=== PATIENT | female | born 1960 | race Caucasian/White ===

== ENCOUNTER 2023-05-04 09:56 | Outpatient (CLI) | payer MEDICARE, SELFPAY ==
--- NOTE | 2023-05-04 11:13 | ECG_ITS ---
Measurements Intervals [place] Rate: 74 P: 53 MD: 154 QRS: 0 QRSD: 96 T: 17 QT: 384 QTc: 429 Interpretive Statements SINUS RHYTHM DELAYED PRECORDIAL R/S TRANSITION BORDERLINE T WAVE ABNORMALITY- ANT/INF LEADS BASELINE ARTIFACT- I, III, AVL BORDERLINE ECG NO PREVIOUS ECG AVAILABLE FOR COMPARISON Electronically Signed On 05-04-2023 13:09:28 CDT by Antony Kc D.O.
[2023-05-04 11:41] LABS: Basophils Absolute Auto 0.1 K/mm3 (0.0-0.1); Basophils Percent Auto 1.1 % (0.2-1.2); Eosinophils Absolute Auto 0.1 K/mm3 (0-0.3); Eosinophils Percent Auto 1.8 % (0-4.4); Hematocrit 46.1 % (37.0-47.0); Hemoglobin 15.1 g/dL (12.0-15.0); Immature Granulocyte Absolute 0.02 K/mm3 (0.00-0.031); Immature Granulocyte Percent A 0.4 % (0-0.5); Lymphocytes Absolute Auto 1.26 K/mm3 (0.9-3.2); Lymphocytes Percent Auto 27.6 % (18.3-44.2); Mean Corpuscular HGB Conc 32.8 g/dl (32-36); Mean Corpuscular Hemoglobin 31.7 pg (26-34); Mean Corpuscular Volume 96.8 fl (80-100); Mean Platelet Volume 9.5 fl (7.4-10.4); Monocytes Absolute Auto 0.6 K/mm3 (0.1-0.6); Monocytes Percent Auto 12.1 % (2.6-8.5); Neutrophils Absolute Auto 2.6 K/mm3 (1.3-6.7); Platelet Count Result 170 k/mm3 (150-375); Red Blood Count 4.76 M/mm3 (4.2-5.4); Red Cell Distribution Width 12.5 % (11.5-14.5); White Blood Count 4.6 K/mm3 (4.5-10.0)
[2023-05-04 11:52] LABS: INR 0.9
[2023-05-04 11:53] LABS: Alanine Aminotransferase 32 U/L (6-35); Albumin Level 4.5 g/dL (3.5-5.1); Alkaline Phosphatase 143 U/L (38-126); Anion Gap 6 mmol/L (8-16); Aspartate Amino Transferase 32 U/L (14-36); Bilirubin,Total 0.4 mg/dL (0.2-1.3); Blood Urea Nitrogen 15 mg/dL (7-17); Calcium 9.1 mg/dL (8.4-10.2); Carbon Dioxide 31 mmol/L (22-30); Chloride 102 mmol/L (98-107); Estimated Glomerular Filt Rate > 60; Glucose 92 mg/dL (65-110); Partial Thromboplastin Time 28.1 SECONDS (22.3-36.8); Sodium 139 mmol/L (137-145)
== END 2023-05-04 09:57 | disposition home or self-care (01) ==
LOC: ANHSURGERY 10:03
PROVIDERS: PCP Internal Medicine; Visit Provider Urology
DX: N81.2 Incomplete uterovaginal prolapse (principal); Z01.818 Encounter for other preprocedural examination; R94.31 Abnormal electrocardiogram [ECG] [EKG]
CPT/HCPCS: 36415; 80053; 85025; 85610; 85730; 86850; 86900; 86901; 93005

== ENCOUNTER 2023-05-14 01:08 | Day surgery (SDC) | payer MEDICARE, SELFPAY ==
[2023-05-04 10:16] VITALS: BP 148/83; PULSE 81; RESP 16; TEMP 37.1; O2SAT 98; BMI 24.6
--- NOTE | 2023-05-04 10:38 | PC.NURSE ---
Addendum entered by Minerva Ann RN 05/04/23 11:09: CORRECTION- HOLD ALL VITAMINS/SUPPLEMENTS 3 DAYS PRE-OP- LAST DOSE 05/10/23. PT RELAYS UNDERSTANDING. Original Note: Report to the Outpatient Waiting Room, entrance under the green pavilion located off [facility], at time __6:00AM on date ___05/14/23____. Planned Procedure Time: __7:30AM . Time changes happen often and if your time is changed the preop area will call you the afternoon before. - You and your visitor will be asked to self-screen and do not enter if you have any COVID symptoms. - A mask is optional within the hospital at this time. Patients may have clear liquids (water, carbonated beverages, clear teas, apple juice) until 3 hours prior to surgery with a maximum of 20 ounces. - No food from midnight until time of surgery Take the following medications with a SIP of water the morning of surgery: ___NONE DO NOT STOP ANY OF YOUR OTHER PRESCRIPTION MEDICATIONS PRIOR TO SURGERY ?EXCEPT THE FOLLOWING Medications to discontinue per physician ____NONE Date to take last dose Please no make-up, nail welsh, hairspray, perfume, deodorant, or body powder the day of surgery. No jewelry (including any body piercings) or valuables the day of surgery, leave them at home. Please take a shower or bath the night before, or the morning of, surgery with an antibacterial soap. Wear comfortable, loose fitting clothing. Children are encouraged to wear pajamas. - Jewelry must be removed prior to entering the operating room. Rings and piercings that are not removed may be cut off. - The hospital will not accept responsibility for valuables. - Please leave all valuables, including medications, at home the day of surgery. If you are going home after surgery, a licensed [employer] flatbed driver must drive you home. - NO public transportation without another adult if you receive anesthesia. - We recommend that an adult stay with you for 24 hours following discharge. - We also recommend that you do not drive, make important decision, drink alcoholic beverages, or take any drugs that were not prescribed by your health care provider for at least 24 hours after your discharge time. Follow any additional instructions given to you from your surgeon. If you or anyone in your household have experienced Covid symptoms in the past week, please notify your surgeon or the nurse liaison at the phone number below for possible testing. Telephone instructions given to __PATIENT and asked if any additional questions and then verbalized understanding. Patient advised to call surgeon office or pre surgery nurse liaison [phone] if any additional questions.
--- NOTE | 2023-05-12 08:46 | PM.IMHP ---
H&P: HPI History of Present Illness Date/Time: 05/12/23 08:46 Chief Complaint: Pelvic organ prolapse Narrative: she has symptoms of pelvic organ prolapse confirmed on exam. There is no stress incontinence on history or urodynamics. She desires surgical correction Review of Systems Review of Systems: All systems reviewed & are unremarkable except as noted in HPI and below PMFSH Past Medical History Medical History Diverticulitis GERD (gastroesophageal reflux disease) Hyperlipidemia Kidney stones stent placed Lichen sclerosus Surgical History Surgical History H/O colonoscopy (06/08/21) Family History Family History Mother Breast cancer Social History Social History Smoking status: Never smoker Alcohol intake: never Substance use: never Living arrangements: with family Additional living arrangements comments: [facility] Occupation/Education: occupation 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 [employer] Gender identity (if verbalized by the patient): Female Sexual Orientation (if Verbalized by the Patient): Straight or Heterosexual Spiritual care concerns: No Meds Home Medications and Allergies Home Medications Medication Instructions Recorded Confirmed Type cholecalciferol (vitamin D3) 50 50 mcg PO DAILY 05/04/23 05/04/23 History mcg (2,000 unit) capsule Allergies Allergy/AdvReac Type Severity Reaction Status Date / Time No Known Allergies Allergy Verified 05/04/23 10:13 Exam Narrative: no acute distress alert oriented x3 cystocele at +2 loss of apical support at 0 Assessment and Plan Assessment and plan (1) Uterine prolapse: Code(s): N81.4 - Uterovaginal prolapse, unspecified Status: Acute Plan proceeding with robotic colpopexy. Understands the risks of bleeding, infection, diskitis, damage surrounding organs, recurrent prolapse, new onset stress incontinence, dyspareunia, mesh related complications including exposure and extrusion. she agrees to proceed
[2023-05-14] VITALS (12 sets, daily range): BP systolic 115–147; BP diastolic 62–87; PULSE 67–86; RESP 12–24; TEMP 36.1–36.6; O2SAT 96–100
--- NOTE | 2023-05-14 07:02 | WPDANESEPPF ---
Anes - Initial Pre Proc Eval Procedure: Operation Date: 05/14/23 07:30 Proposed Procedures p Robotic Sacrocolpopexy, Urethral Sling - Boy Jones MD s Robotic Assisted Laparoscopic Supracervical Hysterectomy with Bilateral Salpingectomy - Tevin Mckeon MD Date/Time: 05/14/23 07:02 Surgeon: Boy Jones MD Pre Op Diagnosis: incomp uterovaginal prolapse,cystocele Patient Data Age: 63 Gender: F Height: 1.68 m Weight: 69.2 kg Last Vital Signs Temp 37.1 C 05/04/23 10:16 Pulse 81 05/04/23 10:16 Resp 16 05/04/23 10:16 BP 148/83 H 05/04/23 10:16 Pulse Ox 98 05/04/23 10:16 O2 Del Method Room Air 05/04/23 10:16 Allergies Allergy/AdvReac Type Severity Reaction Status Date / Time No Known Allergies Allergy Verified 05/04/23 10:13 Home Medications Medication Instructions Recorded Confirmed Type cholecalciferol (vitamin D3) 50 50 mcg PO DAILY 05/04/23 05/04/23 History mcg (2,000 unit) capsule Patient hx anesthesia problems: none Family hx anesthesia problems: none Results Review: All pre-operative results and documents have been reviewed as part of the pre-operative evaluation. 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 Gender identity (if verbalized by the patient): Female Sexual Orientation (if Verbalized by the Patient): Straight or Heterosexual Spiritual care concerns: No Anes - Eval Final PreProcedure Day of Procedure 05/14/23 07:02 Patient weight: normal Heart: regular rate and rhythm Lungs: clear to auscultation Airway: Mallampati scale class II Neurological: alert and oriented Last oral intake: >/= 8 hours ASA classification: II Emergent: no Anesthetic plan: proceed Anesthesia type and monitoring: general ETT and standard monitoring Results Review: All pre-operative results and documents have been reviewed as part of the pre-operative evaluation. Informed Consent: The patient's anesthetic plan and its attendant risks and benefits were discussed with the patient/family/POA. Questions were solicited and answers provided to the satisfaction of the patient/family/POA.
--- NOTE | 2023-05-14 07:14 | SUR.PREOP ---
Dr. Jones did NOT want toradol to be given to pt in preop area.
--- NOTE | 2023-05-14 07:16 | WPDHPUPDATE1 ---
History and Physical Update Update Date/Time: 05/14/23 07:16 History and Physical has been reviewed, including an updated exam of the patient. There are NO changes in the patient's condition. Risks, benefits, and alternatives have been discussed and questions answered. Patient agrees to proceed with procedure.
[2023-05-14] MEDS: KETOROLAC 15 MG/ML VIAL (*BKC) IV PUSH ×2 (07:20→15:03)
[2023-05-14] MEDS: ACETAMINOPHEN 500 MG TABLET 1000 MG PO (07:20)
[2023-05-14] MEDS: LACTATED RINGERS 1,000 ML 30 ML IV CONT ×3 (07:20→10:49)
--- NOTE | 2023-05-14 07:54 | PM.IMHP ---
H&P: HPI History of Present Illness Date/Time: 05/14/23 07:54 Chief Complaint: pelvic organ prolapse Narrative: 63 who presents for robotic assisted hysterectomy and sacrocolpopexy for pelvic organ prolapse. Review of Systems Cardiovascular: Cardiovascular: Denies chest pain, Denies leg edema, Denies palpitations, Denies dyspnea and Denies dyspnea on exertion Respiratory: Respiratory: Denies cough, Denies dyspnea and Denies dyspnea on exertion Gastrointestinal: Gastrointestinal: Denies abdominal pain, Denies constipation, Denies diarrhea, Denies nausea and Denies vomiting Genitourinary: Genitourinary: Denies hematuria, Denies urinary frequency, Denies dysuria, Denies pelvic pain, Denies urinary incontinence and Denies vaginal discharge Neurologic: Reports system reviewed and no additional complaints, except as documented Psychiatric: Psychiatric: Reports no additional psychiatric complaints Endocrine: Endocrine: Denies palpitations PMFSH Past Medical History Medical History Diverticulitis GERD (gastroesophageal reflux disease) Hyperlipidemia Kidney stones stent placed Lichen sclerosus Surgical History Surgical History H/O colonoscopy (06/08/21) Family History Family History Mother Breast cancer Social History Social History Smoking status: Never smoker Alcohol intake: never Substance use: never Living arrangements: with family Additional living arrangements comments: [facility] Occupation/Education: occupation 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 Gender identity (if verbalized by the patient): Female Sexual Orientation (if Verbalized by the Patient): Straight or Heterosexual Spiritual care concerns: No Meds Home Medications and Allergies Home Medications Medication Instructions Recorded Confirmed Type cholecalciferol (vitamin D3) 50 50 mcg PO DAILY 05/04/23 05/04/23 History mcg (2,000 unit) capsule Allergies Allergy/AdvReac Type Severity Reaction Status Date / Time No Known Allergies Allergy Verified 05/14/23 07:49 Vital Signs Vital Signs - 24 hr 05/14/23 07:43 Temperature 97.1 F L Pulse Rate 76 Respiratory Rate 14 Blood Pressure 147/87 H Pulse Oximetry 98 Oxygen Delivery Room Air Exam Const: General: no acute distress Eyes: EOM: EOMs intact bilaterally Neck: Neck: supple Thyroid: thyroid normal Chest: Breast/axilla inspection: normal inspection of the breasts Breast/axilla palpation: normal palpation of the breasts, normal palpation of the axillae and no axillary lymphadenopathy Resp: Effort & Inspection: normal respiratory effort Auscultation: clear to auscultation bilaterally Cardio: Rate: regular rate Rhythm: regular rhythm GI: Inspection: non-distended GI Palp: Yes Soft to palpation, No Tenderness to palpation present (GI) and No Guarding due to palpation present (GI) Auscultation: normal bowel sounds : General: No bladder normal to palpation External Female Exam: normal external appearance Speculum Exam - Vagina: normal vaginal discharge and No vaginal bleeding Speculum Exam - Cervix: nontender Bimanual exam- vagina & uterus: No bladder normal to palpation and No Cervical tenderness present OB/external & speculum: No vaginal bleeding Skin: General skin exam: normal color and no rashes or lesions noted Neuro: Cognition (Neuro): normal cognition Speech: normal speech Extrem: General: normal to inspection and no edema Psych: Mental Status: mental status grossly normal Affect: normal affect Assessment and Plan Assessment and plan (1) Prolapse of female pelvic organs: Code(s): N81.9 - Female genital prolapse, unspecified Status: Acute Assessment and Plan: Patient re
--- NOTE | 2023-05-14 07:56 | WPDHPUPDATE1 ---
History and Physical Update Update Date/Time: 05/14/23 07:56 History and Physical has been reviewed, including an updated exam of the patient. There are NO changes in the patient's condition. Risks, benefits, and alternatives have been discussed and questions answered. Patient agrees to proceed with procedure.
[2023-05-14] MEDS: ceFAZolin 2 GM/D5W 50 ML 2 GM/50 ML BAG IVPB (08:00)
[2023-05-14] MEDS: metroNIDAZOLE 500 MG/ISO 100ML 500 MG/100 ML BAG 100 MG IVPB ×2 (08:00→19:57)
[2023-05-14] MEDS: LIDO 1%/EPINEPHRINE 1:100,000 50 ML VIAL 20 ML INFILTRATE (08:26)
--- NOTE | 2023-05-14 08:44 | W.PM.PROC2 ---
Procedure Note - Detailed Date of Procedure 05/14/23 Pre-op Diagnosis incomp uterovaginal prolapse,cystocele Post-op Diagnosis Same Procedure Performed robotic assisted total laparoscopic supracervical hysterectomy and bilateral salpingectomy Surgeon Tevin Mckeon MD Anesthesia General Description of Procedure After the patient was appropriately consented she was taken to the operating room where she was transferred to the table in a dorsal supine position. General anesthesia was then induced with endotracheal intubation. The patient was transferred to a dorsal lithotomy position using adjustable yellow-fin stirrups. Her position was adjusted for appropriate support of her lower back and lower extremities. The patient was prepped and draped. A transurethral lara catheter was place. Attention was then turned to the abdomen. Dr. Jones proceeded with laparoscopic port placement and abdominal entry. The robot was then docked. The left fallopian tube was identified and followed to the fimbriae. The tube was then transected along the inferior mesosalpinx to the attachment to the uterine body. The left round ligament was then identified and ligated. The broad ligament was then dissected to separate the anterior and posterior aspects. The left utero-ovarian ligament and vessels were then ligated to free the left ovary from the uterus. The posterior aspect of the broad ligament was then skeletonized down to the level of the internal cervical os, mobilizing the ureter laterally. The anterior aspect of the broad ligament was then dissected down to the internal cervical os and a bladder flap was then created sharply. The ipsilateral uterine artery was skeletonized, bipolar cauterized and transected. A similar procedure was performed on the contralateral side, transecting the fallopian tube, transecting the round ligament, dissecting the broad ligament, completing the bladder flap, and skeletonizing, ligating, and dividing the uterine artery on this side. An EAA sizer was introduced into the vagina to help delineate the the borders of the cervix. A circumferential colpotomy using monopolar current in the mid cervix. The cervix was completely transected and the remaining cervical stump was coagulated with monopolar cautery. The uterine body and fallopian tubes were placed in the posterior cul de sac for later removal by Dr. Jones. At this time, my portion of the procedure was completed. Please see Dr. Jones's dictation for the remainder of the procedure. Estimated Blood Loss 10 Drains No Packing No Pathology Yes (uterus and bilateral fallopian tubes) Complications No immediate complications Condition Stable Disposition PACU [facility] Billing Surgery - Charge Forward: Surgery Billing
--- NOTE | 2023-05-14 10:12 | W.PM.PROC2 ---
Procedure Note - Detailed Date of Procedure 05/14/23 Pre-op Diagnosis Uterine prolapse Post-op Diagnosis Same Procedure Performed Robotic assisted laparoscopic sacral colpopexy Cystoscopy Surgeon Boy Jones MD Anesthesia General Indications A woman with with uterine prolapse without stress incontinence by history or urodynamics. She desires surgical correction. She is here for the above. She understands risks of bleeding, infection, diskitis, damage to surrounding organs, bowel injury, bowel obstruction, mesh related complications including exposure and extrusion, postoperative voiding dysfunction including incontinence and retention, need for ancillary procedures, dyspareunia, postoperative voiding dysfunction including incontinence and retention, diskitis, recurrence of prolapse, and other perioperative intraoperative postoperative complications. She agrees to proceed. Findings See below Description of Procedure She was correctly identified. Informed consent obtained. She from the operating room. She was given general anesthesia. She was given appropriate perioperative antibiotics. She was placed a low lithotomy position. Pressure points were padded. A time-out performed. I marked out the skin 3 fingerbreadths cephalad to the umbilicus. I anesthetized the skin. I incised the skin. I dissected down to the fascia. I grasped the fascia with Tara clamps. I entered the fascia sharply in a Bojorquez type technique. I placed sutures for later fascial closure. I placed a midline trocar. I examined the abdomen. There is no sign of any injury. Under direct vision I placed 2 additional trocars in the right upper quadrant and 2 additional trocars the left upper quadrant. She was placed in steep Trendelenburg. The robot was docked. Her director of loss prevention completed their portion of the procedure. Please see that operative report for details. I then sat at the console. The Sizer in the vagina created plane on the anterior and posterior vaginal wall. I took great care not to injure the vagina, bladder, or rectum. I introduced the mesh into the abdomen. I sewed the anterior leaflet of mesh on the anterior vaginal wall. I sewed the posterior leaflet of mesh on the posterior vaginal wall. This was done with several sutures of 2 0 [place]-Jw. I took great care not to go through improved. I reflected the colon laterally. I opened the posterior peritoneum over the sacral promontory. I carried this into the cul-de-sac. I freed up the edges for later retroperitonealization. I located the anterior longitudinal ligament the sacrum. I cleaned off all fatty tissues. I then tensioned my mesh appropriately. I did a vaginal exam the bedside. I assured prolapse reduction without undue tension. I then sewed the proximal leaflet of mesh onto the anterior longitudinal ligament of the sacrum with 4 sutures of 2 0 [place]-Jw. I then used a 2 0 Monocryl to completely and meticulously retroperitonealized all mesh. I allowed the colon to go back to its normal anatomic location. There is no sign of any impingement. The specimen was then removed. All ports removed. Fascia was tied down. Additional sutures were placed to fully close the fascia. skin was closed with Monocryl and surgical glue. I then performed cystoscopy. She had a small degree of rectocele. I chose not to fix this as she has significant lichen sclerosis. On cystoscopy there was no tumors or surgical artifact. Both ureters were seen to excrete clear yellow urine. There is no surgical artifact in the bladder or urethra. I cut the excess sling material. Close incision with glue. She was awakened and transferred to PACU in stable condition. Implants Sacral colpopexy mesh Estimated Blood Loss 10 Packing No Pathology None sent Complications No immediate complications Condition Stable Disposition PACU
[2023-05-14] MEDS: fentaNYL CITRATE INJ (*CRX) 100 MCG/2 ML VIAL 25 MCG IV PUSH ×8 (10:42→11:20)
--- NOTE | 2023-05-14 11:40 | SUR.PHASEI ---
Delay in transfer to 2nd floor OB. Patient's orders transferred. Patient stable. phototypesetting equipment monitor discontinued, pulse ox remains stable at 100% on 2L via nasal cannula. Patient drowsy but awake and answering questions appropriately.
--- NOTE | 2023-05-14 11:55 | SUR.PHASEI ---
Spoke to Dr. Johnson to give update regarding concerns from Zahra OB RN. Dr. Johnson stated patient is stable and meets anesthesia criteria to be safely transferred to OB room 289.
[2023-05-14] MEDS: KCL 20 MEQ/D5/0.45% SOD CHL 1,000 ML 100 ML IV CONT (12:34)
[2023-05-14] MEDS: HYDROcodone/acetaminophen (*CRX) 5-325 MG TABLET 1 TAB PO (12:54)
[2023-05-14] MEDS: ceFAZolin 1 GM/NS 50 ML 1 GM/50 ML BAG IVPB (18:05)
[2023-05-15] MEDS: KCL 20 MEQ/D5/0.45% SOD CHL 1,000 ML 100 ML IV CONT (00:52)
[2023-05-15] MEDS: ceFAZolin 1 GM/NS 50 ML 1 GM/50 ML BAG IVPB ×2 (02:00→09:16)
[2023-05-15 02:26] VITALS: BP 111/68; PULSE 68; RESP 14; TEMP 37.1; O2SAT 98
[2023-05-15] MEDS: HYDROcodone/acetaminophen (*CRX) 5-325 MG TABLET 1 TAB PO (05:46)
[2023-05-15] MEDS: metroNIDAZOLE 500 MG/ISO 100ML 500 MG/100 ML BAG 100 MG IVPB (05:55)
--- NOTE | 2023-05-15 06:46 | PM.DS ---
DS: Admitting Diagnosis Discharge Date 05/15/23 Admitting Diagnosis pelvic organ prolapse stress urinary incontinence DS: Discharge Diagnosis Discharge Diagnosis (1) Uterine prolapse: Code(s): N81.4 - Uterovaginal prolapse, unspecified Status: Acute DS: Summary Hospital Course Hospital Course: Christi Davis was admitted after robotic assisted TLH/BS and sacrocolpopexy. The above procedure was performed with no complications. She is doing well post op. She states her pain is well controlled with PO medications. She reports minimal bleeding. She is ambulating up to the chair. Her lara catheter was removed. She is tolerating PO without N/V. She reports passing flatus. Status at Discharge Overall status at discharge: patient is progressing back to baseline Time Spent with Patient Time attestation: Total time spent providing and/or coordinating discharge services: Time spent: Less than 30 minutes Exam Const: General: comfortable and no acute distress Limitations: no limitations Resp: Effort & Inspection: normal respiratory effort Auscultation: clear to auscultation bilaterally Cardio: Rate: regular rate Rhythm: regular rhythm GI: Inspection: non-distended GI Palp: Yes Soft to palpation, Yes Tenderness to palpation present (GI) (milder tenderness to deep palpation) and No Guarding due to palpation present (GI) Auscultation: normal bowel sounds Other: incisions C/D/I covered with dermabond Urinary Catheter: Urinary Catheter: urine clear Skin: General skin exam: normal color Extrem: General: normal to inspection Psych: Mental Status: mental status grossly normal Affect: normal affect DS: Data Data Completed and Pending Pending studies at discharge: Pending at discharge 05/14/23 09:29 Surgical [PTH] Routine Discharge Plan Discharge Patient Disposition: Home, Self-Care Discharge Instructions: No lifting >20lb, exercise for 6 weeks No tub bath or pool for 2 weeks No intercourse 6 weeks Stand Alone Forms: General Discharge Instructions Follow-up/Referrals: Boy Jones MD [Physician] - (6 weeks) Discharge Medications: New docusate sodium [Colace] 100 mg capsule 100 mg PO BID Qty: 30 0RF Rx Instructions: Okay for generic hydrocodone-acetaminophen 5-325 mg tablet 1 tablet PO Q6H PRN (Reason: pain) Qty: 20 0RF Continued cholecalciferol (vitamin D3) 50 mcg (2,000 unit) Capsule 50 mcg PO DAILY
[2023-05-15 07:25] VITALS: BP 131/79; PULSE 85; RESP 16; TEMP 37.7; O2SAT 99
[2023-05-15] MEDS: ENOXAPARIN 30 MG/0.3 ML SYRINGE SUB-Q (08:25)
[2023-05-15] MEDS: DOCUSATE SODIUM 100 MG CAPSULE PO (08:25)
== END 2023-05-15 10:00 | disposition home or self-care (01) ==
LOC: ANHSURGERY 10:20 → ANHOB2 11:37
PROVIDERS: Student in an Organized Health Care Education/Training Program; PCP Internal Medicine; Visit Provider Urology
PROC: (CPT 57425; principal; 2023-05-14 07:30)
PROC: (CPT 58542; 2023-05-14 07:30)
DX: N81.2 Incomplete uterovaginal prolapse (principal); N84.0 Polyp of corpus uteri
CPT/HCPCS: 57425; 58542; S2900 ×2; 36415; 80053; 85025; 85610; 85730; 86850; 86900; 86901; 88307; 93005; 99199; A9270; C1781; J0330; J0690; J1100; J1170; J1650; J1836; J1885; J2250; J2371; J2405; J2704; J3010; J3480; J7030; J7120